=== PATIENT | female | born 1980 | race Caucasian/White ===

== ENCOUNTER 2021-07-04 20:52 | Inpatient (IN) | payer MEDICAID ==
[~2021-07-04] VITALS: Ht 170.2 cm; Wt 52.6 kg
[2021-07-05 01:05] LABS: BASOPHILS % (AUTO) 0.9 % (0.0-2.0); EOSINOPHILS % (AUTO) 0.8 % (1.0-6.0); HEMOGLOBIN 13.7 g/dL (12.0-16.0); LYMPHOCYTES # (AUTO) 2.3 K/uL (1.0-4.8); MEAN CORPUSCULAR HEMOGLOBIN 33.8 pg (26.0-34.0); MEAN CORPUSCULAR HGB CONC 34.4 G/dL (31.0-37.0); MEAN CORPUSCULAR VOLUME 98 fL (80-100); MONOCYTES # (AUTO) 0.5 K/uL (0.1-1.0); MONOCYTES % (AUTO) 7.2 % (2.0-9.0); NEUTROPHILS # (AUTO) 4.4 K/uL (1.8-7.7); NEUTROPHILS % (AUTO) 60.1 % (40.0-70.0); PLATELET COUNT (AUTO) 283 K/uL (150-450); RED BLOOD CELL COUNT(AUTO) 4.07 MIL/uL (4.00-5.20); RED CELL DISTRIBUTION WIDTH 13.4 % (11.5-14.5)
[2021-07-05 01:11] LABS: COVID AG,FIA SOURCE NASOPHARYNGEAL
[2021-07-05 01:17] LABS: ALANINE AMINOTRANSFERASE 26 U/L (12-78); ALBUMIN 3.7 g/dL (3.4-5.0); ALKALINE PHOSPHATASE 62 U/L (46-116); ANION GAP 11 mmol/L (8-16); ASPARTATE AMINOTRANSFERASE 28 U/L (15-37); BILIRUBIN,TOTAL 0.2 mg/dL (0.1-1.0); CALCIUM, TOTAL 8.8 mg/dL (8.8-10.5); CARBON DIOXIDE 30 mmol/L (22-29); CHLORIDE 100 mmol/L (98-107); CREATININE 0.98 mg/dL (0.60-1.30); GLOMERULAR FILTR. RATE CALC > 60 mL/min (>60); GLUCOSE,RANDOM 96 mg/dL (70-110); SODIUM SERUM 141 mmol/L (136-145); TOTAL PROTEIN, SERUM 7.8 g/dL (6.4-8.2); UREA NITROGEN, BLOOD 8 mg/dL (7-18)
[2021-07-05 01:21] LABS: POTASSIUM 2.9 mmol/L (3.5-5.1)
[2021-07-05] MEDS ORDERED: POTASSIUM CHLORIDE 20 MEQ ER TABLET PO ONE (01:30)
[2021-07-05 01:39] LABS: HCG,QUANTITATIVE < 1 mIU/mL (0-6)
[2021-07-05] MEDS ORDERED: LORATADINE 10 MG TABLET PO ONE (01:45)
[2021-07-05] MEDS ORDERED: ACETAMINOPHEN 500 MG TABLET PO ONE (01:45)
[2021-07-05] MEDS: LORazepam 2 MG TABLET PO PRN ×2 (12:38→22:03)
[2021-07-05 18:43] LABS: ANION GAP 6 mmol/L (8-16); CALCIUM, TOTAL 8.9 mg/dL (8.8-10.5); CARBON DIOXIDE 34 mmol/L (22-29); CHLORIDE 102 mmol/L (98-107); CREATININE 1.05 mg/dL (0.60-1.30); GLOMERULAR FILTR. RATE CALC 58 mL/min (>60); GLUCOSE,RANDOM 93 mg/dL (70-110); POTASSIUM 3.4 mmol/L (3.5-5.1); SODIUM SERUM 142 mmol/L (136-145); UREA NITROGEN, BLOOD 13 mg/dL (7-18)
[2021-07-05 21:58] VITALS: BP 124/81
[2021-07-05] MEDS: ZOLPIDEM TARTRATE 10 MG TABLET PO PRN (22:03)
[2021-07-06 06:23] VITALS: BP 100/61
[2021-07-06 08:10] LABS: FREE T4 (FREE THYROXINE) 0.87 ng/dL (0.76-1.46); THYROID STIMULATING HORMONE 1.57 uIU/mL (0.36-3.74)
[2021-07-06] MEDS ORDERED: ALBUTEROL SULFATE HFA 90 MCG/PUFF 8 GM INHALER IH PRN ×2 (09:00→15:45)
[2021-07-06] MEDS: LORazepam 2 MG TABLET PO PRN ×4 (09:03→20:14)
[2021-07-06] MEDS ORDERED: TRAZ-252 PO (10:38)
[2021-07-06] MEDS ORDERED: GABA-1181 PO (10:38)
[2021-07-06] MEDS ORDERED: BUSP15 PO (10:38)
[2021-07-06] MEDS ORDERED: CYANOCOBALAMIN 1,000 MCG/ML VIAL IM ONE (10:45)
[2021-07-06] MEDS ORDERED: ALPR0.255 PO (11:01)
[2021-07-06] MEDS: NICOTINE 21 MG/24 HOUR PATCH TD SCH (11:01)
[2021-07-06] MEDS ORDERED: CETI10TA58 PO (11:01)
[2021-07-06] MEDS: BusPIRone HCL 15 MG TABLET PO SCH ×2 (11:01→16:09)
[2021-07-06] MEDS ORDERED: ALBU8HFA IH (11:01)
[2021-07-06] MEDS ORDERED: NORE-87 PO (11:01)
[2021-07-06] MEDS: THIAMINE 100 MG TABLET PO SCH ×2 (11:01→16:09)
[2021-07-06] MEDS ORDERED: SUMA20SP NASAL (11:01)
[2021-07-06] MEDS: FOLIC ACID 1 MG TABLET PO SCH (11:02)
[2021-07-06] MEDS: MULTIVITAMINS WITH MINERALS, THERAPEUTIC TABLET PO SCH (11:02)
[2021-07-06 11:30] VITALS: BP 130/75
[2021-07-06] MEDS: GABAPENTIN 300 MG CAPSULE PO SCH ×2 (12:28→16:09)
[2021-07-06] MEDS: HALOPERIDOL 5 MG TABLET PO PRN (15:37)
[2021-07-06 15:41] VITALS: BP 114/72
[2021-07-06] MEDS ORDERED: NICOTINE 14 MG/24 HOUR PATCH TD PRN (15:45)
[2021-07-06] MEDS ORDERED: MAG HYDROX/AL HYDROX/SIMETH ES 30 ML SUSPENSION UDCUP PO PRN (15:45)
[2021-07-06] MEDS ORDERED: CloNIDine HCL 0.1 MG TABLET PO PRN (15:45)
[2021-07-06] MEDS ORDERED: GuaiFENesin/D-METHORPHAN [SUGAR-FREE] 200-20MG/10 ML SYRUP UDCUP PO PRN (15:45)
[2021-07-06] MEDS ORDERED: IBUPROFEN 400 MG TABLET PO PRN (15:45)
[2021-07-06] MEDS ORDERED: DOCUSATE SODIUM 100 MG CAPSULE PO PRN (15:45)
[2021-07-06] MEDS ORDERED: MAGNESIUM HYDROXIDE SUSPENSION 30 ML UDCUP PO PRN (15:45)
[2021-07-06] MEDS ORDERED: ACETAMINOPHEN 325 MG TABLET PO PRN (15:45)
[2021-07-06] MEDS ORDERED: PETROLATUM,WHITE 28 GM JELLY TP PRN (15:45)
[2021-07-06] MEDS ORDERED: ONDANSETRON HCL 4 MG TABLET PO PRN (15:45)
[2021-07-06 16:24] VITALS: BP 101/67
[2021-07-06 17:30] VITALS: BP 100/62
[2021-07-06] MEDS: TraZODone HCL 50 MG TABLET PO SCH (20:13)
[2021-07-06 21:30] VITALS: BP 118/67
[2021-07-07] VITALS (7 sets, daily range): BP systolic 104–125; BP diastolic 71–82
[2021-07-07 06:58] LABS: CHOL/HDL RATIO 2.8 (3.9-5.7)
[2021-07-07] MEDS ORDERED: LORazepam 2 MG TABLET PO PRN (07:00)
[2021-07-07] MEDS: NICOTINE 21 MG/24 HOUR PATCH TD SCH (08:19)
[2021-07-07] MEDS: FOLIC ACID 1 MG TABLET PO SCH (08:19)
[2021-07-07] MEDS: MULTIVITAMINS WITH MINERALS, THERAPEUTIC TABLET PO SCH (08:19)
[2021-07-07] MEDS: THIAMINE 100 MG TABLET PO SCH ×2 (08:19→16:46)
[2021-07-07] MEDS: LORazepam 2 MG TABLET PO SCH ×4 (08:19→20:43)
[2021-07-07] MEDS: BusPIRone HCL 15 MG TABLET PO SCH ×2 (08:19→16:46)
[2021-07-07] MEDS: GABAPENTIN 300 MG CAPSULE PO SCH ×3 (08:20→16:46)
[2021-07-07] MEDS: TraZODone HCL 50 MG TABLET PO SCH (20:43)
[2021-07-08 05:41] VITALS: BP 105/71
[2021-07-08 08:15] VITALS: BP 108/74
[2021-07-08] MEDS: NICOTINE 21 MG/24 HOUR PATCH TD SCH (08:52)
[2021-07-08] MEDS: LORazepam 2 MG TABLET PO SCH ×4 (08:53→20:42)
[2021-07-08] MEDS: MULTIVITAMINS WITH MINERALS, THERAPEUTIC TABLET PO SCH (08:53)
[2021-07-08] MEDS: FOLIC ACID 1 MG TABLET PO SCH (09:00)
[2021-07-08] MEDS: THIAMINE 100 MG TABLET PO SCH ×2 (09:00→16:17)
[2021-07-08] MEDS: GABAPENTIN 300 MG CAPSULE PO SCH ×3 (09:00→16:18)
[2021-07-08 09:47] VITALS: BP 108/74
[2021-07-08] MEDS: BusPIRone HCL 10 MG TABLET PO SCH (16:17)
[2021-07-08 16:24] VITALS: BP 105/68
[2021-07-08 17:47] VITALS: BP 105/68
[2021-07-08] MEDS: TraZODone HCL 50 MG TABLET PO SCH (20:42)
[2021-07-08] MEDS: ZOLPIDEM TARTRATE 10 MG TABLET PO PRN (21:09)
[2021-07-09 06:53] VITALS: BP 110/68
[2021-07-09] MEDS ORDERED: LORazepam 1 MG TABLET PO PRN (07:00)
[2021-07-09 07:17] LABS: MAGNESIUM 2.2 mg/dL (1.80-2.40); PHOSPHORUS 4.1 mg/dL (2.5-4.9); POTASSIUM 4.2 mmol/L (3.5-5.1)
[2021-07-09] MEDS: NICOTINE 21 MG/24 HOUR PATCH TD SCH (08:41)
[2021-07-09] MEDS: FOLIC ACID 1 MG TABLET PO SCH (08:41)
[2021-07-09] MEDS: LORazepam 1 MG TABLET PO SCH ×4 (08:41→20:29)
[2021-07-09] MEDS: BusPIRone HCL 10 MG TABLET PO SCH ×2 (08:41→16:17)
[2021-07-09] MEDS: MULTIVITAMINS WITH MINERALS, THERAPEUTIC TABLET PO SCH (08:42)
[2021-07-09] MEDS: GABAPENTIN 300 MG CAPSULE PO SCH ×3 (08:42→16:17)
[2021-07-09] MEDS: THIAMINE 100 MG TABLET PO SCH ×2 (09:45→16:17)
[2021-07-09 11:20] VITALS: BP 106/64
[2021-07-09 11:21] VITALS: BP 106/64
[2021-07-09 16:21] VITALS: BP 100/65
[2021-07-09 16:48] VITALS: BP 100/65
[2021-07-09 19:10] VITALS: BP 109/71
[2021-07-09] MEDS: SUMAtriptan SUCCINATE 25 MG TABLET PO PRN (19:11)
[2021-07-09] MEDS: TraZODone HCL 50 MG TABLET PO SCH (20:29)
[2021-07-09] MEDS: ZOLPIDEM TARTRATE 10 MG TABLET PO PRN (21:28)
[2021-07-10 05:48] VITALS: BP 110/68
[2021-07-10] MEDS: GABAPENTIN 300 MG CAPSULE PO SCH ×3 (08:17→16:46)
[2021-07-10] MEDS: FOLIC ACID 1 MG TABLET PO SCH (08:17)
[2021-07-10] MEDS: BusPIRone HCL 10 MG TABLET PO SCH ×2 (08:17→16:46)
[2021-07-10] MEDS: NICOTINE 21 MG/24 HOUR PATCH TD SCH (08:18)
[2021-07-10] MEDS: MULTIVITAMINS WITH MINERALS, THERAPEUTIC TABLET PO SCH (08:18)
[2021-07-10] MEDS: SUMAtriptan SUCCINATE 25 MG TABLET PO PRN ×2 (08:18→16:52)
[2021-07-10] MEDS: THIAMINE 100 MG TABLET PO SCH ×2 (08:18→16:46)
[2021-07-10 08:29] VITALS: BP 95/70
[2021-07-10 10:30] VITALS: BP 104/70
[2021-07-10] MEDS: LORazepam 1 MG TABLET PO PRN ×2 (10:32→14:49)
[2021-07-10 16:14] VITALS: BP 108/71
[2021-07-10 18:58] VITALS: BP 108/71
[2021-07-10] MEDS: ZOLPIDEM TARTRATE 10 MG TABLET PO PRN (20:13)
[2021-07-10] MEDS: TraZODone HCL 50 MG TABLET PO SCH (20:13)
[2021-07-11 03:38] VITALS: BP 112/68
[2021-07-11] MEDS: THIAMINE 100 MG TABLET PO SCH ×2 (07:58→16:09)
[2021-07-11] MEDS: GABAPENTIN 300 MG CAPSULE PO SCH ×3 (07:58→16:09)
[2021-07-11] MEDS: MULTIVITAMINS WITH MINERALS, THERAPEUTIC TABLET PO SCH (07:59)
[2021-07-11] MEDS: BusPIRone HCL 10 MG TABLET PO SCH ×2 (07:59→16:08)
[2021-07-11] MEDS: FOLIC ACID 1 MG TABLET PO SCH (07:59)
[2021-07-11] MEDS: NICOTINE 21 MG/24 HOUR PATCH TD SCH (08:00)
[2021-07-11 08:12] VITALS: BP 109/84
[2021-07-11] MEDS: HALOPERIDOL 5 MG TABLET PO PRN ×2 (10:59→15:29)
[2021-07-11 16:07] VITALS: BP 104/70
[2021-07-11 17:10] VITALS: BP 105/72
[2021-07-11] MEDS: SUMAtriptan SUCCINATE 25 MG TABLET PO PRN (17:16)
[2021-07-11] MEDS: TraZODone HCL 50 MG TABLET PO SCH (20:04)
[2021-07-11] MEDS ORDERED: IMIQUIMOD TP SCH (21:00)
[2021-07-12 05:17] VITALS: BP 112/71
[2021-07-12] MEDS ORDERED: FAMOTIDINE 20 MG TABLET PO ONE (07:00)
[2021-07-12] MEDS ORDERED: PredniSONE 20 MG TABLET PO ONE (07:00)
[2021-07-12] MEDS ORDERED: DiphenhydrAMINE HCL 25 MG CAPSULE PO ONE (07:00)
[2021-07-12] MEDS ORDERED: LOPERAMIDE HCL 2 MG CAPSULE PO PRN (07:00)
[2021-07-12 08:06] LABS: GLUCOMETER DEV NAME(LOC) POC.BV
[2021-07-12] MEDS: FOLIC ACID 1 MG TABLET PO SCH (08:11)
[2021-07-12] MEDS: MULTIVITAMINS WITH MINERALS, THERAPEUTIC TABLET PO SCH (08:12)
[2021-07-12] MEDS: BusPIRone HCL 10 MG TABLET PO SCH (08:12)
[2021-07-12] MEDS: NICOTINE 21 MG/24 HOUR PATCH TD SCH (08:12)
[2021-07-12] MEDS: GABAPENTIN 300 MG CAPSULE PO SCH ×2 (08:12→12:31)
[2021-07-12] MEDS: THIAMINE 100 MG TABLET PO SCH (08:12)
[2021-07-12] MEDS: LOPERAMIDE HCL 2 MG CAPSULE PO PRN ×2 (08:13→14:33)
[2021-07-12] MEDS: HALOPERIDOL 5 MG TABLET PO PRN (08:34)
[2021-07-12] MEDS ORDERED: GABA-1181 PO (10:09)
[2021-07-12] MEDS ORDERED: TRAZ-252 PO (10:09)
[2021-07-12] MEDS ORDERED: BUSP10TA23 PO (10:09)
== END 2021-07-12 17:15 | disposition home or self-care (01) | DRG 751 ==
LOC: EMS 20:56 → B3A 07-05 17:51
PROVIDERS: ADMIT Psychiatry & Neurology Psychiatry; ATTEND Psychiatry & Neurology Psychiatry
DX: F33.2 Major depressive disorder, recurrent severe without psychotic features (principal); E44.0 Moderate protein-calorie malnutrition; R45.851 Suicidal ideations; F10.229 Alcohol dependence with intoxication, unspecified; J45.909 Unspecified asthma, uncomplicated; G43.909 Migraine, unspecified, not intractable, without status migrainosus; E87.6 Hypokalemia; F41.1 Generalized anxiety disorder; Y90.8 Blood alcohol level of 240 mg/100 ml or more; F11.90 Opioid use, unspecified, uncomplicated; Z20.822 Contact with and (suspected) exposure to COVID-19; Z88.1 Allergy status to other antibiotic agents; Z87.891 Personal history of nicotine dependence; Z88.0 Allergy status to penicillin; Z88.2 Allergy status to sulfonamides; Z63.4 Disappearance and death of family member; Z68.1 Body mass index [BMI] 19.9 or less, adult; Z88.8 Allergy status to other drugs, medicaments and biological substances
CPT/HCPCS: 80048; 80053; 80061; 83735; 84100; 84132; 84439; 84443; 84702; 85025; 99285; G0480; J3420; Q9967